=== PATIENT | male | born 1985 | race Caucasian/White ===

== ENCOUNTER 2021-08-02 13:05 | Emergency (ER) | payer SELFPAY ==
[~2021-08-02] VITALS: Ht 175.3 cm; Wt 77.1 kg
[2021-08-02 13:13] VITALS: BP 126/80
--- NOTE | 2021-08-02 13:13 | NUR ---
R FOOT PAIN S/P KICKING A WOODEN POLE. REQUESTING XRAY. PT A/OX4. NO DISCOLORATION OR OPEN SKIN NOTED TO RIGHT FOOT.
--- NOTE | 2021-08-02 13:25 | NUR ---
PT SEEN BY AROLDO WAKEFIELD
[2021-08-02] MEDS ORDERED: HYDROCODONE/APAP 5/325MG TABLET PO ONE (13:30)
--- NOTE | 2021-08-02 13:43 | NUR ---
PT SEEN BY BUCCARO
--- NOTE | 2021-08-02 13:51 | NUR ---
WALKING TEST PERFORMED. BOOT PUT ON PT'S R FOOT.
--- NOTE | 2021-08-02 13:57 | NUR ---
Patient discharged to home in stable condition. Written and verbal after care instructions given. Patient verbalizes understanding of instruction. PT ambulatory with a steady gait WITH BOOT
== END 2021-08-02 13:57 | disposition home or self-care (01) ==
LOC: ER 13:10
DX: S90.31XA Contusion of right foot, initial encounter (principal); W22.8XXA Striking against or struck by other objects, initial encounter; Y93.89 Activity, other specified; Y92.89 Other specified places as the place of occurrence of the external cause; Y99.8 Other external cause status
CPT/HCPCS: 73630-TC